=== PATIENT | female | born 1995 | race Two or more races ===

== ENCOUNTER 2017-12-12 22:35 | Emergency (ER) | payer OTHER ==
[~2017-12-12] VITALS: Ht 165.1 cm; Wt 124.7 kg
[2017-12-13] MEDS ORDERED: BUDESONIDE0.5 MG/2 M IH (05:24)
[2017-12-13] MEDS ORDERED: CEPHALEXIN500 MG PO (05:24)
[2017-12-13] MEDS ORDERED: PEPCID AC20 MG PO (05:26)
[2017-12-13] MEDS ORDERED: METOCLOPRAMIDE10 MG PO (05:26)
== END 2017-12-13 06:19 | disposition home or self-care (01) ==
LOC: ER 22:35
DX: O26.892 Other specified pregnancy related conditions, second trimester (principal); J06.9 Acute upper respiratory infection, unspecified; E86.0 Dehydration; N39.0 Urinary tract infection, site not specified; R50.9 Fever, unspecified; Z34.02 Encounter for supervision of normal first pregnancy, second trimester

== ENCOUNTER 2018-03-09 16:32 | Inpatient (IN) | payer OTHER ==
[~2018-03-09] VITALS: Ht 165.1 cm; Wt 3.6 kg
[~2018-03-09 16:32] MED LIST: BUDESONIDE0.5 MG/2 M IH; CEPHALEXIN500 MG PO; METOCLOPRAMIDE10 MG PO; PEPCID AC20 MG PO
[2018-03-12] MEDS ORDERED: PROVENTIL HFA6.7 GM IH (08:14)
[2018-03-15] MEDS ORDERED: ZITHROMAX500 MG PO (13:33)
[2018-03-15] MEDS ORDERED: SYMBICORT 16010.2 GM IH (13:33)
[2018-03-15] MEDS ORDERED: CODE1TAB37 PO (13:33)
== END 2018-03-15 14:17 | disposition home or self-care, planned readmission (81) | DRG 788 ==
LOC: O/R 03-12 07:28 → LDR 03-12 08:45 → OB/GYN 03-12 12:03 → LDR 03-12 13:15 → OB/GYN 03-15 14:17
PROVIDERS: Obstetrics & Gynecology
PROC: 4A1HXCZ Monitoring of Products of Conception, Cardiac Rate, External Approach (ICD-10-PCS; 2018-03-12)
PROC: 10D00Z1 Extraction of Products of Conception, Low, Open Approach (ICD-10-PCS; principal; 2018-03-12 08:45)
DX: O32.8XX0 Maternal care for other malpresentation of fetus, not applicable or unspecified (principal); Z3A.39 39 weeks gestation of pregnancy; Z37.0 Single live birth